=== PATIENT | female | born 1990 | race Caucasian/White ===

== ENCOUNTER 2025-05-05 20:32 | Emergency (ER) | payer OTHER ==
[~2025-05-05] VITALS: Ht 165.1 cm; Wt 99.8 kg
[2025-05-05 21:00] VITALS: BP 115/67
[2025-05-05 21:24] LABS: PLATELET COUNT (AUTO) 163 K/uL (179-408); RED BLOOD CELL COUNT(AUTO) 4.06 MIL/uL (3.63-4.92); RED CELL DISTRIBUTION WIDTH 15.5 % (12.3-17.7); WHITE BLOOD COUNT (AUTO) 5.2 K/uL (3.8-11.8)
[2025-05-05 21:39] LABS: CREATININE 0.9 mg/dL (0.6-1.3); SODIUM SERUM 141 mmol/L (136-145); UREA NITROGEN, BLOOD 12 mg/dL (7-18)
[2025-05-05] MEDS: IV NORMAL SALINE 1000 ML BAG IV ONE (21:40)
[2025-05-05 21:44] LABS: ASPARTATE AMINOTRANSFERASE 101 U/L (15-37); TOTAL PROTEIN, SERUM 6.5 g/dL (6.4-8.2)
[2025-05-05] MEDS: METOCLOPRAMIDE HCL 10 MG/2 ML VIAL IV ONE (21:53)
[2025-05-05] MEDS ORDERED: METOCLOPRAMIDE HCL 10 MG/2 ML VIAL ONE (21:53)
[2025-05-05 23:50] VITALS: BP 120/70; O2SAT 99
== END 2025-05-05 23:55 | disposition home or self-care (01) ==
LOC: ER 20:35
DX: R07.89 Other chest pain (principal)
CPT/HCPCS: 99285; 96374; 71045; 96361; 80076; 80048; 85025; 85379; 85730; 84484 ×2; 36415; 93005; J2765; J7040; A4606; A4663